=== PATIENT | female | born 1990 | race Caucasian/White ===

== ENCOUNTER 2019-05-19 11:30 | Inpatient (IN) | payer OTHER ==
[~2019-05-19 11:30] MED LIST: CITRIC ACID/SODIUM CITRATE 30 ML UNIT-DOSE CUP PO ONE; ELECTROLYTE-148 SOLN 1,000 ML IV SCH
[2019-05-19] MEDS ORDERED: ELECTROLYTE-148 SOLN 1,000 ML IV SCH (12:30)
[2019-05-19 12:40] VITALS: BMI 23.3
[2019-05-19] MEDS ORDERED: OXYTOCIN 20 UNITS in 0.9% NS 40 UNIT/2,000 ML INFUS.BAG IV ONE (13:21)
[2019-05-19] MEDS ORDERED: CITRIC ACID/SODIUM CITRATE 30 ML UNIT-DOSE CUP PO ONE (15:30)
--- NOTE | 2019-05-19 15:35 | HP ---
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: Alzheimer's, CVA, Dementia, Migraine, Multiple Sclerosis, Peripheral Neuropathy, Parkinson's, Seizure, Syncope, TIA, Vertigo, Other Cardiovascular: No: AFIB, Aneurysm, Aortic Insufficiency, Aortic Stenosis, CAD, CHF, Deep Vein Thrombosis, HTN, Hyperlipdemia, [place], Mitral Insufficiency, Mitral Stenosis, Murmur, Pulmonary Hypertension, Other Pulmonary: No: Asthma, Bronchitis, Cancer, COPD, O2 Dependent, Pneumonia, Previously Intubated, Pulmonary Embolus, Pulmonary Fibrosis, Sleep Apnea, Other Gastrointestinal: No: Ascites, Cancer, Constipation, Crohn's Disease, Diverticulitis, Diverticulosis, Esophageal Varices, Gastritis, GERD, GI Bleed, Hemorrhoids, Hiatal Hernia, Inflamatory Bowel Disease, Irritable Bowel Disease, Pancreatitis, Peptic Ulcer Disease, Ulcerative Colitis, Other Hepatobiliary: No: Cirrhosis, Cholelithiasis, Cholecystitis, Choledocholithiasis , Hepatitis A, Hepatitis B, Hepatitis C, Other Renal/: No: Renal Failure, Renal Inusuff, BPH, Cancer, Hematuria, Hemodialysis , Neurogenic Bladder, Renal Calculi, UTI, Other Reproductive: No: Ectopic , Endometriosis, Fibroids, PID, Polycystic Ovary Syndrome, Postmenopausal, Other ...: 3 ...Para: 2 ...Term: 2 ...: 0 ...Spon : 0 ...Induced : 0 ...Multiple Gestation: 0 ...EDC by Sono: 05/31/19 Heme/Onc: No: Anemia, B12 Deficiency, Bleeding Disorder, Cancer, Current Chemotherapy, Current Radiation Therapy, Hemochromatosis, Hypercoaguable State, Myeloproliferative Synd, Sickle Cell Disease, Sickle Cell Trait, Thrombocytopenia, Other Infectious Disease: No: AIDS, C-Diff, Herpes Zoster, HIV, MRSA, STD's, Tuberculosis, VREF, Other Psych: No: Addictions, Anxiety, Bipolar, Depression, Panic, Psychosis, Schizophrenia, Other Musculoskeletal: No: Bursitis, Chronic low back pain, Hemiparesis, Hemiplegia, Osteoarthritis, Paraplegia, Other Rheumatology: No: Fibromyalgia, Gout, Lupus, Rheumatoid Arthritis, Sarcoidosis, Vasculitis, Other ENT: No: Allergic Rhinitis, Sinusitis, Other Endocrine: No: Haider's Disease, Micky's Disease, Diabetes Insipidus, Diabetes Mellitus, Hyperparathyroidism, Hyperthyroidism, Hypothyroidism, Osteopenia, SIADH, Other Dermatology: No: Basal Cell, Cellulitis, Eczema, Melanoma, Psoriasis, Squamous Cell, Other - Past Surgical History Past Surgical History: Yes: Hx Myomectomy: No Hx Transabdominal Cerclage: No - Advance Directives Advance Directives: Yes: Living Will - Smoking History Smoking history: Never smoked Have you smoked in the past 12 months: No - Alcohol/Substance Use Hx Alcohol Use: No History of Substance Use: reports: None - Social History Usual Living Arrangement: Yes: With Significant Other Do you think of yourself as: Straight/Heterosexual ADL: Independent History of Recent Travel: No Home Medications - Allergies Allergies/Adverse Reactions: Allergies Allergy/AdvReac Type Severity Reaction Status Date / Time No Known Allergies Allergy Verified 05/19/19 12:11 - Home Medications Home Medications: Ambulatory Orders Vits96/Iron Fum/Folic [ Tablet] 1 each PO DAILY 05/19/19 Family Medical History Family History: Denies Review of Systems - Review of Systems Constitutional: reports: No Symptoms Eyes: reports: No Symptoms HENT: reports: No Symptoms Neck: reports: No Symptoms Cardiovascular: reports: No Symptoms Respiratory: reports: No Symptoms Gastrointestinal: reports: No Symptoms Genitourinary: reports: No Symptoms Breasts: reports: No Symptoms Reported Musculoskeletal: reports: No Symptoms Integumentary: reports: No Symptoms Neurological: reports: No Symptoms Endocrine: reports: No Symptoms Hematology/Lymphatic: reports: No Symptoms Psychiatric: reports: No Symptoms Physical Exam - Maternity Vital Signs: Vital Signs Temperature 98.6 F 05/19/19 14:00 Pulse Rate 84 05/19/19 14:00 Respiratory Rate 18 05/19/19 14:00 Blood Pressure 120/63 05/19/19 14:00 O2 Sat by Pulse Oximetry (%) Constitutional: Yes: Well Nourished, No Distress, Calm Eyes: Yes: WNL, Conjunctiva Clear, EOM Intact HENT: Yes: WNL, Atraumatic, Normocephalic Neck: Yes: WNL, Supple, Trachea Midline Cardiovascular: Yes: WNL, Regular Rate and Rhythm Lungs: Clear to auscultation Breast(s): Yes: WNL - Abdominal Exam/OB Fundal Height: 38 Number of Fetuses: Single Presentation: Vertex Contractions: Yes Regularity: Irregular Intensity: Mild Monitor Mode: External Heart Rate Location: [facility] Category: I Accelerations: Uniform Decelerations: None - Vaginal Exam/OB Vaginal Bleediing: No Speculum Exam: No Presentation: Vertex/Position Station: -2 - Physical Exam Musculoskeletal: Yes: WNL Extremities: Yes: WNL Edema: Yes Edema: LUE: 1+, RUE: 1+, LLE: 1+, RLE: 1+ Integumentary: Yes: WNL Deep Tendon Reflex Grade: Normal +2 ...Motor Strength: WNL Psychiatric: Yes: WNL, Alert, Oriented Hemorrhage Risk Assessment - Risk Factors Medium Risk Factors: Yes: Prior , uterine surgery,or multiple laparotomies High Risk Factors: Yes: Placenta previa, low lying Risk Score: 3 Risk Level: High Risk Assessment/Plan for repeat lt c s
[2019-05-19] MEDS ORDERED: morphine SULFATE/PF 0.5 MG/ML (2cc Syringe - QUVA) ONE (15:59)
[2019-05-19] MEDS ORDERED: ePHEDrine SULFATE 50 MG/1 ML AMPULE ONE (16:04)
[2019-05-19] MEDS: OXYTOCIN 20 UNITS in 0.9% NS 20 UNIT/1,000 ML INFUS.BAG IV SCH (17:05)
[2019-05-19] MEDS ORDERED: ACETAMINOPHEN 325 MG TABLET (FP) PO PRN (17:45)
[2019-05-19] MEDS ORDERED: METHYLERGONOVINE MALEATE 0.2 MG/1 ML AMP IM PRN (17:45)
[2019-05-19] MEDS ORDERED: oxyCODONE HCL 5 MG TABLET PO PRN (17:45)
[2019-05-19] MEDS ORDERED: SENNOSIDES/DOCUSATE COMBO (SENNA PLUS) TABLET (UD) PO PRN (17:45)
[2019-05-19] MEDS ORDERED: IBUPROFEN 800 MG/8 ML IJ IVPB PRN (17:45)
--- NOTE | 2019-05-19 17:51 | OP ---
Operative Note - Note: Operative Date: 05/19/19 Pre-Operative Diagnosis: repeat lt c s Operation: repeat lt c s Findings: window of lower segment Post-Operative Diagnosis: Same as Pre-op Surgeon: Ayad Spring Supervisor Phosphorus Processing: González Barber Anesthesiologist/ENTRY LEVEL BUYER: Lucero Haque MD Anesthesia: Spinal Estimated Blood Loss (mls): 600 (window of lower segment ) Operative Report Dictated: Yes
[2019-05-19] MEDS ORDERED: ONDANSETRON 4 MG/2 ML VIAL IVPB PRN ×2 (20:12→20:14)
[2019-05-19] MEDS ORDERED: ONDANSETRON 4 MG/2 ML VIAL ONE (20:18)
[2019-05-20] MEDS: OXYTOCIN 20 UNITS in 0.9% NS 20 UNIT/1,000 ML INFUS.BAG IV SCH ×2 (02:05→09:59)
--- NOTE | 2019-05-20 06:51 | OP ---
DATE OF OPERATION: DATE OF DICTATION: 05/19/2019 PREOPERATIVE DIAGNOSIS: Repeat low transverse section x3 and low-lying placenta. POSTOPERATIVE DIAGNOSIS: Repeat low transverse section x3 and low-lying placenta and a window of lower segment area of uterus which means there was a defect of the lower segment of the uterus. SURGEON: Ayad Spring MD ASSISTANT CASINO SHIFT MANAGER: GERMÁN Moura ANESTHESIOLOGIST: TADEO Swann ANESTHESIA: Spinal. BLOOD LOSS: About 600 mL. INDICATION: A 28-year-old female patient with previous history of low transverse section x2, today is x3, and was known to have a low-lying placenta. Patient is taken to OR for repeat low transverse section x3. DESCRIPTION OF PROCEDURE: Patient was taken to the OR and placed on the operating table in supine position. After spinal anesthesia was obtained, the patient's abdomen and pelvis were prepped and draped in the usual sterile manner. Pfannenstiel incision was made. Incision was made through skin and subcutaneous tissue, and the fascia was nicked in the midline. The fascia extended bilaterally. Intraperitoneal cavity was entered. Bladder flap was created. There was a window that was about 3 x 3 cm of lower segment area of uterus, very thin, and we could see the amniotic fluid already, which was covered by thin layer of uterus and the amniotic membrane. So, through that defect, incision was made through the uterus in lower segment area, and baby was delivered from LOT position. Baby was handed over to the sales designer after umbilical cord doubly clamped and cut. No cord blood gases were obtained. Placenta was removed. Uterus closed in single layer. While we were closing the uterus and the lower segment area of posterior part of lower area of uterus had some placenta leak which almost looked like placenta leak, and the sinus was bleeding. So, put a suture inside of the endometrial cavity to close some oozing of sinus of uterus for hemostasis reason. Good hemostasis was obtained. Then, we proceeded to close the uterus, was closed in single layer. Good hemostasis. No complications. Both ovaries and fallopian tubes were within normal limits. Patient was draining clear urine. Blood loss about 600 mL. Peritoneum was closed. Fascia was closed. Skin was closed. Transferred to recovery room in stable condition. MD LAWRENCE MYERS/[id number]
[2019-05-20 09:25] LABS: BASO % 0.3 % (0-2.0); EOS % 0.9 % (0-4.5); HEMATOCRIT 25.6 % (32.4-45.2); LYMPH % 9.8 % (8-40); MCH 31.9 pg (25.7-33.7); MCHC 35.3 g/dl (32.0-36.0); MEAN CELL VOLUME 90.2 fl (80-96); MEAN PLT VOLUME 8.1 fl (7.5-11.1); MONO % 5.2 % (3.8-10.2); NEUT % 83.8 % (42.8-82.8); PLATELET COUNT 149 K/MM3 (134-434); RBC 2.83 M/mm3 (3.60-5.2); RDW 13.4 % (11.6-15.6); WHITE BLOOD COUNT 10.3 K/mm3 (4.0-10.0)
[2019-05-20] MEDS: ENOXAPARIN NA (PORCINE) 40 MG/0.4 ML DISP.SYRIN SQ SCH (09:59)
[2019-05-20] MEDS ORDERED: DIPHTH,PERTUSS(ACELL),TET 0.5 ML DISP.SYRIN IM ONE (10:00)
[2019-05-20] MEDS: SIMETHICONE 80 MG TAB.CHEW (FP) PO PRN ×2 (16:41→21:53)
[2019-05-20] MEDS: IBUPROFEN 600 MG TABLET (FP) PO PRN ×2 (16:41→21:53)
[2019-05-20] MEDS ORDERED: BISACODYL 10 MG SUPP.RECT RC PRN (17:45)
--- NOTE | 2019-05-20 19:40 | PN ---
Post Progress Note Post Day: 1 Type of Delivery: Repeat C/S Vital Signs: Vital Signs Temperature 98.2 F 05/20/19 14:00 Pulse Rate 70 05/20/19 14:00 Respiratory Rate 18 05/20/19 16:43 Blood Pressure 118/63 05/20/19 14:00 O2 Sat by Pulse Oximetry (%) 99 05/20/19 10:00 Breast Exam: Yes: Soft Uterus: Yes: Fundus Firm, Fundus below umbilicus Incision: Yes: Dressing dry and intact, Sutures intact Abdomen/GI: Yes: Abdomen soft, Passing flatus, Tolerating PO Lochia: Yes: Serosa Lochia, amount: Small Extremities: Yes: Calves non-tender Perineum: Yes: Intact, Episiotomy Activity: Ambulating (doing well, anemia , will give iron ) - Labs Labs: CBC WBC 10.3 K/mm3 (4.0-10.0) H 05/20/19 09:11 RBC 2.83 M/mm3 (3.60-5.2) L 05/20/19 09:11 Hgb 9.0 GM/dL (10.7-15.3) L 05/20/19 09:11 Hct 25.6 % (32.4-45.2) L D 05/20/19 09:11 MCV 90.2 fl (80-96) 05/20/19 09:11 MCH 31.9 pg (25.7-33.7) 05/20/19 09:11 MCHC 35.3 g/dl (32.0-36.0) 05/20/19 09:11 RDW 13.4 % (11.6-15.6) 05/20/19 09:11 Plt Count 149 K/MM3 (134-434) 05/20/19 09:11 MPV 8.1 fl (7.5-11.1) 05/20/19 09:11 Absolute Neuts (auto) 8.7 K/mm3 (1.5-8.0) H 05/20/19 09:11 Neutrophils % 83.8 % (42.8-82.8) H 05/20/19 09:11 Lymphocytes % 9.8 % (8-40) 05/20/19 09:11 Monocytes % 5.2 % (3.8-10.2) 05/20/19 09:11 Eosinophils % 0.9 % (0-4.5) 05/20/19 09:11 Basophils % 0.3 % (0-2.0) 05/20/19 09:11 Nucleated RBC % 0 % (0-0) 05/20/19 09:11
[2019-05-20] MEDS: FERROUS SO4 325 MG TABLET (FP) PO SCH (21:53)
[2019-05-21] MEDS: SIMETHICONE 80 MG TAB.CHEW (FP) PO PRN ×2 (07:55→18:05)
[2019-05-21] MEDS: oxyCODONE HCL 5 MG TABLET PO PRN ×2 (07:55→18:03)
[2019-05-21] MEDS: IBUPROFEN 600 MG TABLET (FP) PO PRN ×2 (07:56→18:04)
[2019-05-21] MEDS: FERROUS SO4 325 MG TABLET (FP) PO SCH ×2 (10:11→22:23)
[2019-05-21] MEDS: ENOXAPARIN NA (PORCINE) 40 MG/0.4 ML DISP.SYRIN SQ SCH (10:12)
--- NOTE | 2019-05-21 10:34 | PN ---
Post Progress Note Post Day: 2 Type of Delivery: Repeat C/S Vital Signs: Vital Signs Temperature 97.8 F 05/20/19 22:00 Pulse Rate 75 05/20/19 22:00 Respiratory Rate 20 05/20/19 22:00 Blood Pressure 105/58 L 05/20/19 22:00 O2 Sat by Pulse Oximetry (%) 99 05/20/19 10:00 Breast Exam: Yes: Soft Uterus: Yes: Fundus Firm, Fundus below umbilicus, Non-tender Incision: Yes: Dressing dry and intact, Sutures intact Abdomen/GI: Yes: Abdomen soft, Passing flatus, Tolerating PO Lochia: Yes: Serosa Lochia, amount: Small Extremities: Yes: Calves non-tender Perineum: Yes: Intact Activity: Ambulating (no complaints ) - Labs Labs: CBC WBC 10.3 K/mm3 (4.0-10.0) H 05/20/19 09:11 RBC 2.83 M/mm3 (3.60-5.2) L 05/20/19 09:11 Hgb 9.0 GM/dL (10.7-15.3) L 05/20/19 09:11 Hct 25.6 % (32.4-45.2) L D 05/20/19 09:11 MCV 90.2 fl (80-96) 05/20/19 09:11 MCH 31.9 pg (25.7-33.7) 05/20/19 09:11 MCHC 35.3 g/dl (32.0-36.0) 05/20/19 09:11 RDW 13.4 % (11.6-15.6) 05/20/19 09:11 Plt Count 149 K/MM3 (134-434) 05/20/19 09:11 MPV 8.1 fl (7.5-11.1) 05/20/19 09:11 Absolute Neuts (auto) 8.7 K/mm3 (1.5-8.0) H 05/20/19 09:11 Neutrophils % 83.8 % (42.8-82.8) H 05/20/19 09:11 Lymphocytes % 9.8 % (8-40) 05/20/19 09:11 Monocytes % 5.2 % (3.8-10.2) 05/20/19 09:11 Eosinophils % 0.9 % (0-4.5) 05/20/19 09:11 Basophils % 0.3 % (0-2.0) 05/20/19 09:11 Nucleated RBC % 0 % (0-0) 05/20/19 09:11
--- NOTE | 2019-05-21 10:38 | DS ---
Physical Exam-DATA TECHNICAL LEAD Vital Signs: Vital Signs Temperature 97.8 F 05/20/19 22:00 Pulse Rate 75 05/20/19 22:00 Respiratory Rate 20 05/20/19 22:00 Blood Pressure 105/58 L 05/20/19 22:00 O2 Sat by Pulse Oximetry (%) 99 05/20/19 10:00 Constitutional: Yes: Well Nourished, No Distress, Calm Eyes: Yes: WNL, Conjunctiva Clear, EOM Intact HENT: Yes: WNL, Atraumatic, Normocephalic Neck: Yes: WNL, Supple, Trachea Midline Cardiovascular: Yes: WNL, Regular Rate and Rhythm Respiratory: Yes: WNL, Regular, CTA Bilaterally Gastrointestinal: Yes: WNL, Normal Bowel Sounds, Soft ...Rectal Exam: Yes: WNL Renal/: Yes: WNL Pelvis: Yes: WNL External Genitalia: Yes: Normal Internal Exam Deferred: No Vaginal Exam: Yes: Normal Cervix: Yes: Normal Uterus: Yes: Normal Adnexa: Normal: Bilateral ....Post : Yes: Uterus firm, Uterus non-tender Breast(s): Yes: WNL Musculoskeletal: Yes: WNL Extremities: Yes: WNL Edema: Yes Edema: LUE: 1+, RUE: 1+, LLE: 1+, RLE: 1+ Integumentary: Yes: WNL Wound/Incision: Yes: Clean/Dry, Well Approximated Neurological: Yes: WNL, Alert, Oriented ...Motor Strength: WNL Psychiatric: Yes: WNL, Alert, Oriented Labs: CBC, BMP 05/20/19 09:11 Delivery - Delivery Type of Anesthesia: Spinal Episiotomy/Laceration: None EBL (cc): 600 Delivery, Single - Stages of Labor Date of Delivery: 05/19/19 Time of Delivery: 16:34 Time Placenta Delivered: 16:35 - Condition of Civil Engineering Designer/Meter Repairer Helper Present: Yes Name: Leana Mendes Gender: Female Weight: 2.977 kg Position: Left, OA Total Hours ROM (Hrs/Mins): 0/2 - 1 Minute Total Score: 9 5 Minutes Total Score: 9 - Feeding Plan Initial Plan: Elected not to breastfeed exclusively throughout hospitalization Discharge Summary Problems reviewed: Yes Reason For Visit: REPEAT Procedures: Principal: repeat lt c s x 3 Other Procedures: none Hospital Course: uneventful Health Concerns: none Plan of Treatment: oob as much as possible Goals: return to work in 8 weeks Condition: Good - Instructions Diet, Activity, Other Instructions: Physical activity Resume your normal everyday activity as tolerated no heavy lifting or exercise until seen by your surgeon. You may walk unlimited candace of and climb stairs. You may resume driving the car when you feel safe and comfortable behind the wheel. No sexual activity as instructed. Wound care If you have a bandage, leave it on, and keep dry for 48-72 hours. After that time discard the outer bandage. If they are tapes on the skin under the out of bandage leave them in place. They will peel off in the next 7 to 10 days. Do Not Peel them off. You may shower the day after surgery. If there are tapes present on the skin, you may shower over them. Diet There are no dietary restrictions. Eat healthy, high-fiber foods. Drink 6 to 8 glasses of liquid each day. This will assist in keeping your bowels are regular. Pain management You may take Tylenol or acetaminophen or Ibuprofen (for example, Motrin, Advil etc.) from my pain prescription medication is ordered should be taken as prescribed for moderate to severe pain. Call MD for any of the following: call dr patel for 2 weeks appointment Severe pain not relieved by medication Fever of 101 or higher Excessive bleeding or drainage on dressing Inability to urinate Disposition: HOME - Home Medications Comprehensive Discharge Medication List: Ambulatory Orders Vits96/Iron Fum/Folic [ Tablet] 1 each PO DAILY 05/19/19 Prescription Drug Monitoring Program (I-STOP) results: I-STOP reviewed and no issues identified
[2019-05-22 07:59] LABS: BASO % 0.4 % (0-2.0); EOS % 2.1 % (0-4.5); HEMATOCRIT 25.3 % (32.4-45.2); LYMPH % 23.4 % (8-40); MCH 31.9 pg (25.7-33.7); MCHC 35.7 g/dl (32.0-36.0); MEAN CELL VOLUME 89.6 fl (80-96); MEAN PLT VOLUME 7.8 fl (7.5-11.1); MONO % 6.5 % (3.8-10.2); NEUT % 67.6 % (42.8-82.8); PLATELET COUNT 170 K/MM3 (134-434); RBC 2.82 M/mm3 (3.60-5.2); RDW 13.4 % (11.6-15.6); WHITE BLOOD COUNT 7.4 K/mm3 (4.0-10.0)
[2019-05-22 09:01] VITALS: BP 120/76; PULSE 60; TEMP 97.6
[2019-05-22] MEDS: ENOXAPARIN NA (PORCINE) 40 MG/0.4 ML DISP.SYRIN SQ SCH ×2 (09:32→09:37)
[2019-05-22] MEDS: FERROUS SO4 325 MG TABLET (FP) PO SCH (09:32)
--- NOTE | 2019-05-22 16:10 | PATH ---
Surgical Pathology Report Patient Name: [facility]. Rec. #: [id number] /Age/Gender: 1990 (Age: 28) / F Account: [id number] Location: [facility] OBS/UNIT LEADER Taken: 05/19/2019 Received: 05/20/2019 Reported: 05/22/2019 Physicians: Ayad Spring MD Specimen(s) Received PLACENTA Clinical History , term , low lying placenta for repeat Final Diagnosis PLACENTA: THIRD TRIMESTER PLACENTA WITH CHRONIC DECIDUITIS. TRIVASCULAR CORD. MEMBRANES WITH NO DIAGNOSTIC ABNORMALITIES. Electronically Signed Katarzyna Oleary M.D. Gross Description The specimen is received fresh labeled placenta and is a 438 gram, 18.5 x 16.5 x 2.6 cm. placenta with attached membranes and umbilical cord. The attached membranes are [place], translucent with focal opacities and insert marginally. The umbilical cord measures 35 cm. in length and averages 1 cm. in diameter. The cord inserts eccentrically, 4.5 cm. to the nearest margin. No true knots or strictures are identified. Cut surface of the umbilical cord reveals 3 vessels. The surface is tierney blue with moderate fibrin deposition and appropriate caliber vessels. The maternal surface is red-brown with focal defects. Sectioning reveals red-brown, spongy parenchyma. No lesions are identified. Doffer sections are submitted in three cassettes as follows: 1- membrane rolls and umbilical cord; 2-3- full thickness sections of placenta. /05/21/2019 saudi/05/21/2019
== END 2019-05-22 15:30 | disposition home or self-care (01) | DRG 787 ==
LOC: JLDR 11:30 → J3W 20:53
PROVIDERS: ADMIT Obstetrics & Gynecology; ATTEND Obstetrics & Gynecology
PROC: 10D00Z1 Extraction of Products of Conception, Low, Open Approach (ICD-10-PCS; principal; 2019-05-19)
DX: O34.211 Maternal care for low transverse scar from previous cesarean delivery (principal); O44.43 Low lying placenta NOS or without hemorrhage, third trimester; Z3A.38 38 weeks gestation of pregnancy; Z37.0 Single live birth
CPT/HCPCS: 36415; 85025; 90715